=== PATIENT | male | born 1960 | race Caucasian/White ===

== ENCOUNTER 2022-01-06 09:30 | Outpatient (CLI) | payer MEDICARE, SELFPAY | END 2022-01-06 09:31 | disposition home or self-care (01) | LOC: WOUND 09:32 | PROVIDERS: Visit Provider Nurse Practitioner Family | DX: L89.893 Pressure ulcer of other site, stage 3 (principal) | CPT/HCPCS: 97597 ==

== ENCOUNTER 2022-01-13 09:27 | Outpatient (CLI) | payer MEDICARE, SELFPAY | END 2022-01-13 09:28 | disposition home or self-care (01) | PROVIDERS: Visit Provider Surgery | DX: L89.893 Pressure ulcer of other site, stage 3 (principal); G90.09 Other idiopathic peripheral autonomic neuropathy | CPT/HCPCS: 97597 ==

== ENCOUNTER 2022-01-19 12:57 | Outpatient (CLI) | payer MEDICARE, SELFPAY ==
--- NOTE | 2022-01-19 13:00 | CRLHL7_ITS ---
For Patients: As a result of the Century Cures Act, medical imaging exams and procedure reports are released immediately into your electronic medical record. You may view this report before your referring provider. If you have questions, please contact your health care provider. INDICATION: NON-HEALING ULCERS BILATERALLY TECHNIQUE: Bilateral lower extremity arterial duplex ultrasound with color Doppler and spectral waveform analysis. COMPARISON: None. FINDINGS: Multiple sonographic parham-scale images demonstrate minimal atherosclerotic plaque in both lower extremities. Right leg: Systolic velocities are within normal limits. Color Doppler and spectral waveform analysis demonstrates biphasic waveforms are demonstrated throughout. Left leg: Systolic velocities are within normal limits. Color Doppler and spectral waveform analysis demonstrates biphasic waveforms are demonstrated throughout. IMPRESSION: No major occlusions or significant stenoses. Dictated by Nba Felipe MD @ 01/19/2022 2:32:58 PM (Electronically Signed)
== END 2022-01-19 12:58 | disposition home or self-care (01) ==
LOC: US 12:58
PROVIDERS: PCP Family Medicine; Visit Provider Nurse Practitioner Family
DX: L97.519 Non-pressure chronic ulcer of other part of right foot with unspecified severity (principal); L97.529 Non-pressure chronic ulcer of other part of left foot with unspecified severity
CPT/HCPCS: 93926

== ENCOUNTER 2022-01-20 09:57 | Outpatient (CLI) | payer MEDICARE, SELFPAY | END 2022-01-20 09:58 | disposition home or self-care (01) | LOC: WOUND 09:58 | PROVIDERS: Visit Provider Surgery | DX: L89.893 Pressure ulcer of other site, stage 3 (principal); G90.09 Other idiopathic peripheral autonomic neuropathy | CPT/HCPCS: 97597 ==

== ENCOUNTER 2022-01-27 09:27 | Outpatient (CLI) | payer MEDICARE, SELFPAY | END 2022-01-27 09:28 | disposition home or self-care (01) | LOC: WOUND 09:28 | PROVIDERS: PCP Family Medicine; Visit Provider Surgery | DX: L89.893 Pressure ulcer of other site, stage 3 (principal); G90.09 Other idiopathic peripheral autonomic neuropathy | CPT/HCPCS: 97597 ==

== ENCOUNTER 2022-02-03 09:15 | Outpatient (CLI) | payer MEDICARE, SELFPAY | END 2022-02-03 09:16 | disposition home or self-care (01) | LOC: WOUND 09:15 | PROVIDERS: PCP Family Medicine; Visit Provider Surgery | DX: L89.893 Pressure ulcer of other site, stage 3 (principal); G90.09 Other idiopathic peripheral autonomic neuropathy | CPT/HCPCS: 97597 ==

== ENCOUNTER 2022-02-10 09:13 | Outpatient (CLI) | payer MEDICARE, SELFPAY | END 2022-02-10 09:14 | disposition home or self-care (01) | LOC: WOUND 09:14 | PROVIDERS: PCP Family Medicine; Visit Provider Surgery | DX: L97.513 Non-pressure chronic ulcer of other part of right foot with necrosis of muscle (principal); L97.522 Non-pressure chronic ulcer of other part of left foot with fat layer exposed; G90.09 Other idiopathic peripheral autonomic neuropathy | CPT/HCPCS: 97597 ==

== ENCOUNTER 2022-02-17 09:15 | Outpatient (CLI) | payer MEDICARE, SELFPAY | END 2022-02-17 09:16 | disposition home or self-care (01) | PROVIDERS: PCP Family Medicine; Visit Provider Surgery | DX: L97.522 Non-pressure chronic ulcer of other part of left foot with fat layer exposed (principal); L97.513 Non-pressure chronic ulcer of other part of right foot with necrosis of muscle; G90.09 Other idiopathic peripheral autonomic neuropathy | CPT/HCPCS: 97597 ==

== ENCOUNTER 2022-02-24 09:13 | Outpatient (CLI) | payer MEDICARE, SELFPAY | END 2022-02-24 09:14 | disposition home or self-care (01) | LOC: WOUND 09:14 | PROVIDERS: PCP Family Medicine; Visit Provider Surgery | DX: L89.893 Pressure ulcer of other site, stage 3 (principal) | CPT/HCPCS: 97597 ==

== ENCOUNTER 2022-03-03 09:14 | Outpatient (CLI) | payer MEDICARE, SELFPAY | END 2022-03-03 09:15 | disposition home or self-care (01) | LOC: WOUND 09:15 | PROVIDERS: PCP Family Medicine; Visit Provider Surgery | DX: L89.893 Pressure ulcer of other site, stage 3 (principal); G90.09 Other idiopathic peripheral autonomic neuropathy | CPT/HCPCS: 97597 ==

== ENCOUNTER 2022-03-10 09:16 | Outpatient (CLI) | payer MEDICARE, SELFPAY | END 2022-03-10 09:17 | disposition home or self-care (01) | LOC: WOUND 09:16 | PROVIDERS: Visit Provider Surgery | DX: L89.893 Pressure ulcer of other site, stage 3 (principal); G90.09 Other idiopathic peripheral autonomic neuropathy | CPT/HCPCS: 97597 ==

== ENCOUNTER 2022-03-17 09:21 | Outpatient (CLI) | payer MEDICARE, SELFPAY | END 2022-03-17 09:22 | disposition home or self-care (01) | LOC: WOUND 09:21 | PROVIDERS: PCP Family Medicine; Visit Provider Surgery | DX: L89.893 Pressure ulcer of other site, stage 3 (principal); L89.894 Pressure ulcer of other site, stage 4; G90.09 Other idiopathic peripheral autonomic neuropathy | CPT/HCPCS: 97597 ==

== ENCOUNTER 2022-03-24 09:14 | Outpatient (CLI) | payer MEDICARE, SELFPAY | END 2022-03-24 09:15 | disposition home or self-care (01) | PROVIDERS: Visit Provider Surgery | DX: L89.893 Pressure ulcer of other site, stage 3 (principal); L89.894 Pressure ulcer of other site, stage 4; G90.09 Other idiopathic peripheral autonomic neuropathy | CPT/HCPCS: 97597 ==